=== PATIENT | female | born 1990 | race Caucasian/White ===

== ENCOUNTER 2017-05-30 06:18 | Day surgery (SDC) | payer OTHER ==
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
[~2017-05-30 06:18] MED LIST: ceFAZolin 1 GM in NS 100 ML IV ONE
[2017-05-30] MEDS ORDERED: FLU VACC QS 2017-18 (3YR+)/PF 0.5 ML SYR (FLUARIX QUAD) IM ONE ×2 (07:18→11:22)
[2017-05-30 07:25] VITALS: PULSE 93
[2017-05-30] MEDS ORDERED: LR 1,000 ML IV ONE (08:15)
--- NOTE | 2017-05-30 08:25 | PDHPUP ---
History & Physical Update H&P update statement: This history and physical update is based on an assessment of the patient which was completed after admission or registration (within 24 hours), but prior to the surgery/procedure.
[2017-05-30] MEDS ORDERED: DOXYCYCLINE HYCLATE 100 MG CAP/TAB PO ONE (08:27)
--- NOTE | 2017-05-30 09:33 | PDANEPAE ---
ANE History of Present Illness Missed Ab. ANE Past Medical History - Cardiovascular History Hx Hypertension: No Hx Arrhythmias: No Hx Chest Pain: No Hx Coronary Artery / Peripheral Vascular Disease: No Hx CHF / Valvular Disease: No Hx Palpitations: No - Pulmonary History Hx COPD: No Hx Asthma/Reactive Airway Disease: Yes Hx Recent Upper Respiratory Infection: No Hx Oxygen in Use at Home: No Hx Sleep Apnea: No Sleep Apnea Screening Result - Last Documented: Negative - Endocrine History Hx Diabetes: No Hypothyroid: No Hyperthyroid: No Obesity: no (Prior general anesthesia for knee surgery.) - Chronic Pain History Chronic Pain: No ANE Review of Systems Review of Systems: Very mild asthma (more severe when younger). - Exercise capacity Exercise capacity: >=4 METS ANE Patient History - Allergies Allergies/Adverse Reactions: ciprofloxacin Allergy (Mild, Verified 12/02/14 17:58) Itching cetirizine HCl [From Zyrtec] Allergy (Verified 12/02/14 17:58) fluticasone propionate [From Advair Diskus] Allergy (Verified 12/02/14 17:58) salmeterol xinafoate [From Advair Diskus] Allergy (Verified 12/02/14 17:58) - NPO status NPO Status: no food or drink >8 hours NPO Since - Liquids (Date): 05/29/17 NPO Since - Liquids (Time): 22:00 NPO Since - Solids (Date): 05/29/17 NPO Since - Solids (Time): 22:00 - Anes Hx Anes Hx: no prior problems - Smoking Hx Smoking Status: Never smoked Marijuana use: No - Alcohol Use Alcohol Use: None - Family Anes Hx Family Anes Hx: neg - N/A ANE Labs/Vital Signs - Vital Signs Blood Pressure: 111/87 Heart Rate: 93 Respiratory Rate: 16 O2 Sat (%): 95 Height: 162.56 cm Weight: 59.874 kg ANE Physical Exam - Airway Neck exam: FROM Mallampati Score: Class 1 Mouth exam: normal dental/mouth exam - Pulmonary Pulmonary: no respiratory distress - Cardiovascular Cardiovascular: regular rate and rhythym - ASA Status ASA Status: I ANE Anesthesia Plan Anesthesia Plan: GA with mask
[2017-05-30] MEDS ORDERED: PROPOFOL/EMULSION 500 MG/50 ML BOTTLE IV ONE (09:55)
[2017-05-30] MEDS ORDERED: fentaNYL 100 MCG/2 ML INJ ONE (09:56)
[2017-05-30] MEDS ORDERED: ONDANSETRON 4 MG/2 ML VIAL ONE (10:50)
[2017-05-30] MEDS ORDERED: KETOROLAC 30 MG/1 ML SDV ONE (10:50)
[2017-05-30] MEDS ORDERED: LIDOCAINE 2% 5 ML SDV ONE (10:51)
[2017-05-30] MEDS ORDERED: DEXAMETHASONE 4 MG/ML VIAL ONE ×2 (10:51)
--- NOTE | 2017-05-30 10:52 | OBPROC ---
[facility] Outpatient Procedure Note - History : 2 Term: 1 : 0 Para: 1 Spontaneous Abortions: 0 Induced Abortions: 0 Abortions: 0 Ectopics: 0 Livin - Procedure Info Date of Operation: 05/30/17 Pre-op Diagnoses: MAB at 9 wks, 6 wk size Post-op Diagnoses: same Indication: early u/s with very slow FCA, f/u u/s with MAB - only 6 wk size Procedure: Dilation & Curettage Performing Provider: Jacquelyn Severino Anesthesiologist: Ko Coy Analgesia/Anesthesia Type: General (IV / Mask) Complications: None Specimen(s)/Path: Products of Conception IV Fluid (ml): 1,100 Procedural EBL: < 50 ml Procedural Note: see dictation ICD10 Worksheet Patient Problems: Problems Problem Status Onset S/P dilatation and curettage Acute
[2017-05-30 11:58] VITALS: BP 91/65
[2017-05-30 12:07] VITALS: RESP 16; TEMP 98.8; O2SAT 96
--- NOTE | 2017-05-31 00:25 | GOP ---
[f rep st] OPERATIVE REPORT DATE OF OPERATION: 05/30/2017 SURGEON: Jacquelyn Severino MD ANESTHESIOLOGIST: Damion Stokes MD, with IV and mask general. PREOPERATIVE DIAGNOSIS: Missed . POSTOPERATIVE DIAGNOSIS: Missed . PROCEDURE PERFORMED: Dilatation and curettage. FINDINGS: INDICATIONS: The patient is a 27-year-old, G2, P1, who was diagnosed with a missed AB. By sure last menstrual period, the patient should be 9 weeks gestation, however, was measuring only 6 weeks and 1 day. At that time, there was a very slow cardiac activity of 55 beats per minute. The patient was identified to have a low progesterone and she was placed on progesterone support. She had HCG levels that revealed a slight drop, and a repeat ultrasound on May 14 showed no growth, still at 6 weeks size with no cardiac activity. The patient wanted to proceed with definitive manageme nt with a D and C, after she had no results with trying Cytotec to see if that would induce a miscarr iage. The patient has not had any cramping and only had scant bleeding after the Cytotec. Maternal blood type O positive. The patient was advised as to the risks and benefits and the consent form sig luke. DESCRIPTION OF PROCEDURE: The patient was taken to the operating room, where following satisfactory general IV anesthetic, the patient was placed in dorsal lithotomy position. The patient's perineum a nd vagina were prepped and the patient draped in usual sterile manner for vaginal procedure. The pat ient had urinated prior to coming to the operating room. She had SCDs on her lower extremities for D VT prophylaxis. The patient received a dose of antibiotics prior to coming to the operating room. A sterile speculum was placed within the vagina. An atraumatic grasper was placed on the anterior lip of the cervix and gentle traction applied. The cervix was slowly dilated up to 8.5 Hegar dilator. A #8 tip was used on the suction machine, and a moderate amount of tissue was obtained on several pas ses in the uterus. Following the suction curettage, then sharp curettage was performed with a small curette. Good uterine cry was felt throughout the uterine cavity. There was no additional tissue ob tained. One final pass with the suction tip was performed and no additional tissue was obtained. Th ere was minimal bleeding from the uterus. The atraumatic grasper was taken off the cervix and there was no bleeding. An ultrasound was performed after the procedure and there was no intrauterine sac i dentified. The patient tolerated the procedure well. She was cleaned off and awoken and taken to the recovery room in stable condition. TOTAL IV FLUIDS: 1100 mL. PROCEDURAL ESTIMATED BLOOD LOSS: Less than 50 mL. COMPLICATIONS: There were no complications. /[id number]/MODL
== END 2017-05-30 12:25 | disposition home or self-care (01) ==
LOC: FOBOP 06:18
PROVIDERS: ATTEND Obstetrics & Gynecology
PROC: 10D17ZZ Extraction of Products of Conception, Retained, Via Natural or Artificial Opening (ICD-10-PCS; principal; 2017-05-30)
DX: O02.1 Missed abortion (principal); Z3A.09 9 weeks gestation of pregnancy
CPT/HCPCS: J1100; J1885; J2405; J2704; J3010

== ENCOUNTER 2017-09-25 05:46 | Emergency (ER) | payer OTHER ==
[2017-09-25 05:52] VITALS: RESP 16
[2017-09-25] MEDS ORDERED: NS 1,000 ML IV ONE (05:52)
--- NOTE | 2017-09-25 06:00 | EDPHY ---
H & P Stated Complaint: 12 weeks /bleeding started MN Source: Patient - Personal History Current Tetanus Diphtheria and Acellular Pertussis (TDAP): Yes Tetanus Vaccine Date: 05/2015 - Medical/Surgical History Hx Asthma: Yes Hx Chronic Respiratory Disease: No Hx Diabetes: No Hx Cardiac Disease: No Hx Renal Disease: No Hx Cirrhosis: No Hx Alcoholism: No Hx HIV/AIDS: No Hx Splenectomy or Spleen Trauma: No Other PMH: ASTHMA, MISCARRIAGE D+C MAY 2017, TONSIL, KNEE SX - Social History Smoking Status: Never smoked Time Seen by Provider: 09/25/17 05:52 HPI/ROS: HPI CHIEF COMPLAINT: Vaginal bleeding, HISTORY OF PRESENT ILLNESS: This patient very pleasant 27-year-old female, she is currently 12 weeks and developed some vaginal bleeding around 4 o' clock this morning. She denies any pelvic pain or abdominal pain. Denies vomiting or urinary symptoms. She was initially had an outside emergency room however was unable to get an ultrasound as she states the tieing machine operator was unavailable for few hours. She decided come to our emergency room after contacting her OBGYN. Dr. Callaway. Patient presents emergency room hemodynamically stable denies any abdominal pain. She states she had some vaginal bleeding earlier in the evening bright red blood. Denies clots. This is her 3rd . Past Medical History: No significant medical history Past Surgical History: No significant surgical history Social History: Lives locally denies drugs alcohol tobacco Family History: Noncontributory OBGYN: DR. Callaway. ROS REVIEW OF SYSTEMS: A comprehensive 10 point review of systems is otherwise negative aside from elements mentioned in the history of present illness. Exam Constitutional anxious otherwise appears well nontoxic triage nursing summary reviewed, vital signs reviewed, awake/alert. Eyes normal conjunctivae and sclera, EOMI, PERRLA. HENT normal inspection, atraumatic, moist mucus membranes, no epistaxis, neck supple/ no meningismus, no raccoon eyes. Respiratory clear to auscultation bilaterally, normal breath sounds, no respiratory distress, no wheezing. Cardiovascular rate normal, regular rhythm, no murmur, no edema, distal pulses normal. Gastrointestinal soft, non-tender, no rebound, no guarding, normal bowel sounds, no distension, no pulsatile mass. Genitourinary no CVA tenderness. Musculoskeletal no midline vertebral tenderness, full range of motion, no calf swelling, no tenderness of extremities, no meningismus, good pulses, neurovascularly intact. Skin pink, warm, & dry, no rash, skin atraumatic. Neurologic awake, alert and oriented x 3, AAOx3, moves all 4 extremities equally, motor intact, sensory intact, CN II-XII intact, normal cerebellar, normal vision, normal speech. Psychiatric normal mood/affect. Heme/Lymph/Immune no lymphadenopathy. Differential Diagnosis: Includes but is not limited to in a particular order subchorionic hemorrhage, threatened AB, ectopic , dehydration, UTI Medical Decision Making: Plan for this patient ultrasound to evaluate , hCG quant, basic blood work, IV hydration and UA and re-evaluate. Re-evaluation: Signed out to Dr. Rodriguez at 7am. Follow up OBGYN. (Isaiah Lima) Constitutional: Initial Vital Signs Temperature (C) 37.2 C 09/25/17 05:49 Heart Rate 99 09/25/17 05:49 Respiratory Rate 16 09/25/17 05:49 Blood Pressure 111/50 L 09/25/17 05:49 O2 Sat (%) 100 09/25/17 05:49 O2 Delivery Mode Room Air Allergies/Adverse Reactions: ciprofloxacin Allergy (Mild, Verified 12/02/14 17:58) Itching cetirizine HCl [From Zyrtec] Allergy (Verified 12/02/14 17:58) fluticasone propionate [From Advair Diskus] Allergy (Verified 12/02/14 17:58) salmeterol xinafoate [From Advair Diskus] Allergy (Verified 12/02/14 17:58) Home Medications: Medication Instructions Recorded NK [No Known Home Meds] 09/25/17 Medical Decision Making ED Course/Re-evaluation: I took over care of this patient at 6:45 AM for change of shift. Dr. Lopez reported at 6:50 AM the ultrasound showed a small subchorionic hemorrhage with a normal intrauterine . I have informed her OB and she will be discharge to follow up with her OB for further care. I informed the patient of her results. She agrees to this course of action. (Wang Rodriguez) - Data Points Laboratory Results: Laboratory Results 09/25/17 06:00 09/25/17 06:00 09/25/17 09/25/17 09/25/17 06:00 06:00 06:00 WBC RBC Hgb Hct MCV MCH MCHC RDW Plt Count MPV Neut % (Auto) Lymph % (Auto) [place] % (Auto) Eos % (Auto) Baso % (Auto) Nucleat RBC Rel Count Absolute Neuts (auto) Absolute Lymphs (auto) Absolute Monos (auto) Absolute Eos (auto) Absolute Basos (auto) Absolute Nucleated RBC Immature Gran % Immature Gran # Sodium 140 mEq/L mEq/L (135-145) Potassium 4.0 mEq/L mEq/L (3.5-5.2) Chloride 108 mEq/L mEq/L (97-110) Carbon Dioxide 21 mEq/l L mEq/l (22-31) Anion Gap 11 mEq/L mEq/L (8-16) BUN 9 mg/dL mg/dL (7-23) Creatinine 0.5 mg/dL L mg/dL (0.6-1.0) Estimated GFR > 60 Glucose 74 mg/dL mg/dL (70-100) Calcium 9.5 mg/dL mg/dL (8.5-10.4) Beta HCG, Quant Pending Urine Color YELLOW Urine Appearance CLEAR Urine pH 7.0 (5.0-7.5) Ur Specific Cisco 1.010 (1.002-1.030) Urine Protein NEGATIVE (NEGATIVE) Urine Ketones NEGATIVE (NEGATIVE) Urine Blood 2+ H (NEGATIVE) Urine Nitrate NEGATIVE (NEGATIVE) Urine Bilirubin NEGATIVE (NEGATIVE) Urine Urobilinogen NEGATIVE EU EU (0.2-1.0) Ur Leukocyte Esterase NEGATIVE (NEGATIVE) Urine RBC 1-3 /hpf /hpf (0-3) Urine WBC 1-3 /hpf /hpf (0-3) Ur Epithelial Cells TRACE /lpf /lpf (NONE-1+) Urine Bacteria TRACE /hpf H /hpf (NONE SEEN) Urine Mucus TRACE /lpf /lpf (NONE-1+) Urine Glucose NEGATIVE (NEGATIVE) Patient ABO/Rh O POSITIVE 09/25/17 06:00 WBC 7.99 10^3/uL 10^3/uL (3.80-9.50) RBC 4.70 10^6/uL 10^6/uL (4.18-5.33) Hgb 14.5 g/dL g/dL (12.6-16.3) Hct 42.0 % % (38.0-47.0) MCV 89.4 fL fL (81.5-99.8) MCH 30.9 pg pg (27.9-34.1) MCHC 34.5 g/dL g/dL (32.4-36.7) RDW 13.2 % % (11.5-15.2) Plt Count 210 10^3/uL 10^3/uL (150-400) MPV 10.8 fL fL (8.7-11.7) Neut % (Auto) 65.1 % % (39.3-74.2) Lymph % (Auto) 29.0 % % (15.0-45.0) [place] % (Auto) 5.4 % % (4.5-13.0) Eos % (Auto) 0.1 % L % (0.6-7.6) Baso % (Auto) 0.1 % L % (0.3-1.7) Nucleat RBC Rel Count 0.0 % % (0.0-0.2) Absolute Neuts (auto) 5.20 10^3/uL 10^3/uL (1.70-6.50) Absolute Lymphs (auto) 2.32 10^3/uL 10^3/uL (1.00-3.00) Absolute Monos (auto) 0.43 10^3/uL 10^3/uL (0.30-0.80) Absolute Eos (auto) 0.01 10^3/uL L 10^3/uL (0.03-0.40) Absolute Basos (auto) 0.01 10^3/uL L 10^3/uL (0.02-0.10) Absolute Nucleated RBC 0.00 10^3/uL 10^3/uL (0-0.01) Immature Gran % 0.3 % % (0.0-1.1) Immature Gran # 0.02 10^3/uL 10^3/uL (0.00-0.10) Sodium Potassium Chloride Carbon Dioxide Anion Gap BUN Creatinine Estimated GFR Glucose Calcium Beta HCG, Quant Urine Color Urine Appearance Urine pH Ur Specific Cisco Urine Protein Urine Ketones Urine Blood Urine Nitrate Urine Bilirubin Urine Urobilinogen Ur Leukocyte Esterase Urine RBC Urine WBC Ur Epithelial Cells Urine Bacteria Urine Mucus Urine Glucose Patient ABO/Rh Medications Given: Discontinued Medications Sodium Chloride (Ns) 1,000 mls @ 0 mls/hr IV EDNOW ONE; Wide Open PRN Reason: Protocol Stop: 09/25/17 05:53 Last Admin: 09/25/17 06:05 Dose: 1,000 mls Departure - Departure Disposition: Home, Routine, Self-Care Clinical Impression: Subchorionic hemorrhage Qualifiers: Fetus number: single or unspecified fetus Trimester: second trimester Qualified Code(s): O41.8X20 - Other specified disorders of amniotic fluid and membranes, second trimester, not applicable or unspecified; O46.8X2 - Other antepartum hemorrhage, second trimester; O46.8X2 - Other antepartum hemorrhage, second trimester Condition: Good Instructions: Subchorionic Hemorrhage (ED) Additional Instructions: 1. Stay well-hydrated drink lots of fluids. 2. Return emergency room if you have worsening abdominal pain fever vomiting or other worsening of condition. 3. Follow up with her OBGYN. Referrals: Conchita Callaway DO [Doctor of Osteopathy] - As per Instructions
[2017-09-25 06:15] LABS: PLATELET COUNT 210 10^3/uL (150-400)
[2017-09-25 07:11] VITALS: BP 105/72; PULSE 81; TEMP 98.1; O2SAT 97
== END 2017-09-25 07:11 | disposition home or self-care (01) ==
DX: O46.8X1 Other antepartum hemorrhage, first trimester (principal); J45.909 Unspecified asthma, uncomplicated; E86.9 Volume depletion, unspecified; O41.8X10 Other specified disorders of amniotic fluid and membranes, first trimester, not applicable or unspecified; Z3A.12 12 weeks gestation of pregnancy

== ENCOUNTER 2018-03-20 09:55 | Inpatient (IN) | payer OTHER ==
[2018-03-20] MEDS ORDERED: AMMONIA AROMATIC 1 EACH AMP IH PRN (10:11)
[2018-03-20] MEDS ORDERED: MISOPROSTOL 200 MCG TAB PO PRN (10:11)
[2018-03-20] MEDS ORDERED: OXYTOCIN/RINGERS LACTATE 1,000 ML IV PRN (10:11)
[2018-03-20] MEDS ORDERED: EPSOM SALT 454 GM TP PRN (10:11)
[2018-03-20] MEDS ORDERED: IBUPROFEN 600 MG TAB PO PRN (10:11)
[2018-03-20] MEDS ORDERED: OLIVE OIL 118 ML BTL MISC PRN (10:11)
[2018-03-20] MEDS ORDERED: TERBUTALINE SULFATE 1 MG/ML VIAL IV PRN (10:11)
[2018-03-20] MEDS ORDERED: LIDOCAINE 1% 300 MG/30 ML SDV SC PRN (10:11)
[2018-03-20] MEDS ORDERED: LR 1,000 ML IV PRN (10:11)
[2018-03-20 10:40] LABS: PLATELET COUNT 178 10^3/uL (150-400)
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
--- NOTE | 2018-03-20 12:48 | OBPROG ---
Labor Progress Note Assessment/Plan: Assessment: 28 y/o @ 37 + weeks in active labor Plan: Pt is doing well in natural labor, currently intact. She declines cx exam at this time. status is reassuring. 03/20/18 12:47 Subjective/Intrapartum Course: 03/20/18 12:44 Pt is doing well having regular labor contractions Q 3-5 minutes. She just finished nursing her 2 yr old for his nap and was on the monitor during that time. Baby is doing well. She denies LOF, VB and declines cx exam at this time. Objective: 03/20/18 10:20 Patient ABO/Rh O POSITIVE 03/20/18 10:20 - SVE Dilation (cm): 5 Effacement (%): 80 Station: 0 Membranes: Intact - Contraction Pattern Assessment Current Contraction Pattern: Regular (Q 3-5) - FHR Assessment Courtney FHR (bpm): 135 FHR Pattern Variability: Moderate FHR Category: 1 - AP Antepartum Course: 03/20/18 12:46 H/o PTD @ 35 weeks, on Farideh until 36 weeks Asthma, well controlled now H/o PP depression/ anxiety no current meds ICD10 Worksheet Patient Problems: Problems Problem Status Onset S/P dilatation and curettage Acute
--- NOTE | 2018-03-20 14:57 | OBPROG ---
Labor Progress Note Assessment/Plan: Assessment: 28 y/o @ 37 + weeks in active labor Plan: Pt is doing well in natural labor, currently intact. Pt declines AROM now, she is going to try the tub first. status is reassuring. 03/20/18 12:47 03/20/18 14:57 Subjective/Intrapartum Course: 03/20/18 12:44 Pt is doing well having regular labor contractions Q 3-5 minutes. She just finished nursing her 2 yr old for his nap and was on the monitor during that time. Baby is doing well. She denies LOF, VB and declines cx exam at this time. 03/20/18 14:52 Pt is coping well with labor contractions, but feeling they are "right on top of each other" and getting much more intense. No LOF or vaginal bleeding. Objective: 03/20/18 10:20 Patient ABO/Rh O POSITIVE 03/20/18 10:20 - SVE Dilation (cm): 8 Effacement (%): 90 Station: 0 Membranes: Intact - Contraction Pattern Assessment Current Contraction Pattern: Regular (Q 2-3) - FHR Assessment [place] FHR (bpm): 135 FHR Pattern Variability: Moderate - AP Antepartum Course: 03/20/18 12:46 H/o PTD @ 35 weeks, on [place] until 36 weeks Asthma, well controlled now H/o PP depression/ anxiety no current meds ICD10 Worksheet Patient Problems: Problems Problem Status Onset S/P dilatation and curettage Acute
[2018-03-20] MEDS ORDERED: DOCUSATE SODIUM 100 MG CAP PO PRN (16:29)
[2018-03-20] MEDS ORDERED: SIMETHICONE 80 MG TAB CHEW PO PRN (16:29)
[2018-03-20] MEDS ORDERED: HYDROCODONE/APAP 5/325 TAB PO PRN (16:29)
[2018-03-20] MEDS ORDERED: HYDROCORTISONE 0.5% CREAM TP PRN (16:29)
--- NOTE | 2018-03-20 16:34 | OBDEL ---
Info Type: Vaginal Presentation at Delivery: Vertex L&D Analgesia/Anesthesia Type: None GBS+: No - Hospital Course Intrapartum: 03/20/18 12:44 Pt is doing well having regular labor contractions Q 3-5 minutes. She just finished nursing her 2 yr old for his nap and was on the monitor during that time. Baby is doing well. She denies LOF, VB and declines cx exam at this time. 03/20/18 14:52 Pt is coping well with labor contractions, but feeling they are "right on top of each other" and getting much more intense. No LOF or vaginal bleeding. Indications for Delivery: Spontaneous Labor Vaginal Delivery - Delivery Provider Delivery Physician/CNM: Demi Thornton - Labor and Delivery Onset of Contractions Date: 03/20/18 Onset of Contractions Time: 07:00 Onset of Contractions Type: Spontaneous Rupture of Membranes Date: 03/20/18 Rupture of Membranes Time: 16:00 Rupture of Membranes Type: Artificial Amniotic Fluid Color: Clear Dilation Complete Date: 03/20/18 Dilation Complete Time: 16:05 Placenta Delivery Date: 03/20/18 Placenta Delivery Time: 16:20 Total Hours of Labor: 9 Laceration: Other (Specify) (intact perineum) Vaginal Sponge Count Correct: Yes Vaginal Needle Count Correct: Yes Vaginal Sweep Performed: Yes EBL: 350 Delivery Events: None - Medications Labor Augmentation/Induction Methods Used: None Data CAROL: 04/04/18 Gestational Age: 37 week(s) and 6 day(s) [place] Delivery Date: 03/20/18 Delivery Time: 16:13 Sex of : Male Score (1 Min): 8 Score (5 Min): 9 ICD10 Worksheet Patient Problems: Problems Problem Status Onset (spontaneous vaginal delivery) Acute S/P dilatation and curettage Acute - ICD10 Problem Qualifiers (1) (spontaneous vaginal delivery)
[2018-03-20] MEDS: ACETAMINOPHEN 325 MG TAB PO SCH (18:20)
[2018-03-21] MEDS: IBUPROFEN 600 MG TAB PO SCH ×5 (02:44→18:56)
[2018-03-21] MEDS: ACETAMINOPHEN 325 MG TAB PO SCH ×5 (02:45→18:55)
--- NOTE | 2018-03-21 10:08 | OBPP ---
Progress Note Assessment/Plan: Assessment: PPD 1 s/p Plan: routine care, desires d/c at 24 hr time 03/21/18 10:02 Subjective/ Course: 03/21/18 10:03 Pt doing well. Has been breast feeding baby and reports better latch than with first who had significant tongue-tied. Getting colostrum as she has been continuing to nurse her 3 y/o - he was fussy and awake through much of night wanting to be at home. Pt has little bleeding and mild cramps controlled with ibu/tyl. urinating fine. Pt desires d/c when able. Pt is aware of therapy support and has kept in touch with therapist she used after first - encouraged f/u 03/21/18 10:08 Objective: 03/20/18 10:20 Patient ABO/Rh O POSITIVE 03/20/18 10:20 Temp Pulse Resp BP Pulse Ox 36.6 C 65 16 99/67 L 96 03/21/18 08:30 03/21/18 08:30 03/21/18 08:30 03/21/18 08:30 03/21/18 08:30 Uterine Position/Fundal Height: Umbilicus -2 Uterine Tone: Firm Physical Exam - Physical Exam Abdomen: non-tender, soft, other (FF at umb -2, Bld light) Extremities: non-tender, pedal edema (minimal) Skin: normal color, warm/dry Neuro/Psych: alert, normal mood/affect
--- NOTE | 2018-03-21 10:13 | OBGCSDC ---
General Delivery Information - General Info : 3 Para: 2 Abortions: 1 Type: Vaginal L&D Analgesia/Anesthesia Type: None Admission Date: 03/20/18 Labs: Patient ABO/Rh O POSITIVE 03/20/18 10:20 Hct 39.2 % (38.0-47.0) 03/20/18 10:20 - Hospital Course Antepartum: 03/20/18 12:46 H/o PTD @ 35 weeks, on [place] until 36 weeks Asthma, well controlled now H/o PP depression/ anxiety no current meds Intrapartum: 03/20/18 12:44 Pt is doing well having regular labor contractions Q 3-5 minutes. She just finished nursing her 2 yr old for his nap and was on the monitor during that time. Baby is doing well. She denies LOF, VB and declines cx exam at this time. 03/20/18 14:52 Pt is coping well with labor contractions, but feeling they are "right on top of each other" and getting much more intense. No LOF or vaginal bleeding. : 03/21/18 10:03 Pt doing well. Has been breast feeding baby and reports better latch than with first who had significant tongue-tied. Getting colostrum as she has been continuing to nurse her 3 y/o - he was fussy and awake through much of night wanting to be at home. Pt has little bleeding and mild cramps controlled with ibu/tyl. urinating fine. Pt desires d/c when able. Pt is aware of therapy support and has kept in touch with therapist she used after first - encouraged f/u 03/21/18 10:08 Vaginal - Delivery Provider Delivery Physician/CNM: Demi Thornton - Diagnosis Labor: Spontaneous Rupture of Membranes Type: Artificial Amniotic Fluid Color: Clear Laceration: Other (Specify) (intact perineum) Delivery Events: None - Delivery EBL: 350 Data CAROL: 04/04/18 Gestational Age: 38 week(s) and 0 day(s) [place] Delivery Date: 03/20/18 Delivery Time: 16:13 Sex of : Male [place] Weight (gm): 3070 kg Score (1 Min): 8 Score (5 Min): 9 Discharge Information - Discharge Information Condition: Good Instruction/Follow Up: See Instruction Sheet, Four Weeks (pt is aware a therapy f/u is recommended), Six Weeks (with Dr Thornton)
[2018-03-21 19:48] VITALS: BP 118/87
== END 2018-03-21 20:00 | disposition home or self-care (01) | DRG 774 ==
LOC: FLD 09:55 → OBSVTOIN 09:55 → FOB 20:00
PROVIDERS: ADMIT Obstetrics & Gynecology; ATTEND Obstetrics & Gynecology
DX: O98.313 Other infections with a predominantly sexual mode of transmission complicating pregnancy, third trimester (principal); B00.9 Herpesviral infection, unspecified; O99.513 Diseases of the respiratory system complicating pregnancy, third trimester; J45.909 Unspecified asthma, uncomplicated; Z23 Encounter for immunization; Z87.891 Personal history of nicotine dependence; Z3A.38 38 weeks gestation of pregnancy; Z37.0 Single live birth
CPT/HCPCS: G0008; J2590

== ENCOUNTER → 2018-03-27 | Outpatient (CLI) | payer OTHER | LOC: FLACT 09:43 | PROVIDERS: ATTEND Obstetrics & Gynecology | DX: Z39.1 Encounter for care and examination of lactating mother (principal) | CPT/HCPCS: G0463 ==

== ENCOUNTER → 2018-06-05 | Outpatient (CLI) | payer OTHER | LOC: FLACT 13:38 | PROVIDERS: ATTEND Obstetrics & Gynecology | DX: Z39.1 Encounter for care and examination of lactating mother (principal) | CPT/HCPCS: G0463 ==